=== PATIENT | male | born 1970 | race Caucasian/White ===

== ENCOUNTER 2017-04-14 16:17 | Emergency (ER) | payer OTHER ==
[~2017-04-14] VITALS: Ht 188 cm; Wt 109.5 kg
[~2017-04-14 16:17] MED LIST: CIPRO500 MG PO; FLAGYL500 MG PO; NORCO 5/3251 TABLET PO; ZOFRAN ODT4 MG PO
[2017-04-14 18:48] VITALS: BP 146/89
== END 2017-04-14 18:49 | disposition home or self-care (01) ==
LOC: EME 16:17
DX: M25.561 Pain in right knee (principal)
CPT/HCPCS: 73564; 93971; 99281; 99283